=== PATIENT | female | born 1935 | race African-American/Black ===

== ENCOUNTER 2016-11-16 10:56 | Emergency (ER) | payer MEDICARE, BC ==
[~2016-11-16] VITALS: Ht 175.3 cm; Wt 109.0 kg
[2016-11-16] MEDS ORDERED: FURO40TA5 PO (11:09)
[2016-11-16] MEDS ORDERED: METO2.5T14 PO (11:09)
[2016-11-16] MEDS ORDERED: ASPI-1159 PO (11:09)
[2016-11-16] MEDS ORDERED: ALBU18HF2 IH (11:09)
[2016-11-16] MEDS ORDERED: HYDR-4134 PO (11:09)
[2016-11-16] MEDS ORDERED: MOME13HF IH (11:09)
[2016-11-16] MEDS ORDERED: ATOR40TA70 PO (11:09)
[2016-11-16] MEDS ORDERED: POTA10CA42 PO (11:09)
[2016-11-16 13:46] VITALS: BP 144/79
== END 2016-11-16 15:00 | disposition home or self-care (01) ==
LOC: ER 15:00
DX: G56.03 Carpal tunnel syndrome, bilateral upper limbs (principal); I10 Essential (primary) hypertension; E78.00 Pure hypercholesterolemia, unspecified; E05.90 Thyrotoxicosis, unspecified without thyrotoxic crisis or storm; K21.9 Gastro-esophageal reflux disease without esophagitis; J45.909 Unspecified asthma, uncomplicated; Z85.3 Personal history of malignant neoplasm of breast; Z88.0 Allergy status to penicillin; Z79.82 Long term (current) use of aspirin; Z98.890 Other specified postprocedural states
CPT/HCPCS: 82962; 99282